=== PATIENT | male | born 1990 | race African-American/Black ===

== ENCOUNTER 2021-08-29 15:57 | Emergency (ER) | payer BC, MEDICAID ==
[~2021-08-29] VITALS: Ht 182.9 cm; Wt 127.0 kg
[2021-08-29 17:48] LABS: Urine Bacteria NONE SEEN /hpf (None Seen); Urine Blood Negative /uL (Negative); Urine Mucus FEW (None Seen); Urine Specific Gravity 1.015 (1.001-1.035); Urine WBC 2 /hpf (0 - 3)
[2021-08-29 19:47] VITALS: BP 127/66
== END 2021-08-29 22:03 | disposition home or self-care (01) ==
LOC: ER 15:57
DX: N43.3 Hydrocele, unspecified (principal)
CPT/HCPCS: 76870; 81001